=== PATIENT | female | born 1975 | race Caucasian/White ===

== ENCOUNTER 2019-06-12 11:35 | Emergency (ER) | payer OTHER ==
[~2019-06-12] VITALS: Ht 167.6 cm; Wt 77.1 kg
[~2019-06-12 11:35] MED LIST: ADULT ONE DAI200 MCG PO; ALIGN4 MG PO; ANASPAZ0.125 MG SUBLING; APAP500 PO; CLARITIN10 M2 PO; CVS DAILY GUM200 MCG PO; DEXILANT60 MG PO; FIBER GUMMIES2.5 GM PO; FOLGARD TABLET1 EAC1 PO; NORCO 5-325 TA1 EACH PO; PROBIOTIC1 EAC2 PO; PROVIGIL 100 M100 M1 PO; PROVIGIL 200 M200 MG PO; TRAMADOL 50 MG50 MG PO; VITAMIN D-32000 UNIT PO
[2019-06-12 11:57] LABS: URINE BLOOD NEGATIVE (Negative); URINE CLARITY SL CLOUDY; URINE COLOR DARK YELLOW; URINE GLUCOSE-RANDOM NEGATIVE (Negative); URINE KETONES 1+ (Negative); URINE LEUKOCYTES-REFLEX NEGATIVE (Negative); URINE NITRITE-REFLEX NEGATIVE (Negative); URINE PROTEIN 2+ (Negative)
[2019-06-12] MEDS ORDERED: ALPRAZOLAM XR3 MG PO (11:57)
[2019-06-12] MEDS ORDERED: DEXILANT60 MG PO (11:57)
[2019-06-12 11:58] LABS: URINE BILIRUBIN 1+ (Negative)
[2019-06-12] MEDS ORDERED: TAFINLAR50 MG PO (11:58)
[2019-06-12] MEDS ORDERED: MEKINIST2 MG PO (11:59)
[2019-06-12] MEDS ORDERED: TAFINLAR75 MG PO (11:59)
[2019-06-12 12:00] LABS: ICTOTEST (BILI CONFIRMATORY) Positive (Negative)
[2019-06-12] MEDS ORDERED: VITAMIN E400 UNI4 PO (12:00)
[2019-06-12] MEDS ORDERED: ZOFRAN ODT4 MG PO (12:00)
[2019-06-12] MEDS ORDERED: VITAMIN B-1100 M2 PO (12:00)
[2019-06-12] MEDS ORDERED: GLUCOSAMINE-CH1 EACH PO (12:01)
[2019-06-12] MEDS ORDERED: CALCIUM500 MG PO (12:01)
[2019-06-12] MEDS ORDERED: VITAMIN C100 MG PO (12:02)
[2019-06-12] MEDS ORDERED: CHILDREN'S ZYRT10 M1 PO (12:02)
[2019-06-12 12:06] LABS: SQUAMOUS 4-10 Moderate /LPF (0-3); URINE RBC None Seen /HPF (0-2); URINE WBC-REFLEX None Seen /HPF (0-5)
[2019-06-12 12:08] LABS: BACTERIA-REFLEX 1-9 Few /HPF (None Seen); CRYSTALS None Seen /LPF (None Seen); HYALINE CASTS 0-3 Few /LPF (None Seen); MUCUS >6 Heavy strn/LPF (None Seen)
[2019-06-12 12:25] LABS: ABSOLUTE LYMPHOCYTES 0.4 thou/uL (0.8-5.3); ABSOLUTE MONOCYTES 0.4 thou/uL (0.0-1.2); ABSOLUTE NEUTROPHILS 1.7 thou/uL (1.6-8.1); BASOPHILS 0.4 %; HEMATOCRIT 31.4 % (37.0-47.0); HEMOGLOBIN 10.9 gm/dL (12.0-15.0); LYMPHOCYTES 17.3 %; MCH 31.5 pg (26.0-34.0); MCHC 34.9 g/dL (28.0-37.0); MCV 90.2 fL (80.0-100.0); MONOCYTES 13.9 %; MPV 7.5 fl. (7.2-11.1); NUCLEATED RBCS 0 /100WBC; PLATELET COUNT* 104 thou/uL (150-400); POLYS 68.4 %; RBC 3.48 mil/uL (4.20-5.00); RDW-CV 12.4 % (10.5-14.5); WBC 2.5 thou/uL (4.0-11.0)
[2019-06-12 12:27] LABS: CALCIUM 7.9 mg/dL (8.5-10.1); POTASSIUM 3.5 mmol/L (3.5-5.1)
[2019-06-12 12:30] LABS: APTT 29.2 Seconds (25.0-31.3); INR 1.2
[2019-06-12 12:32] LABS: TOTAL BILIRUBIN 0.6 mg/dL (<0.1-1.0); TOTAL PROTEIN 6.1 g/dL (6.4-8.2)
[2019-06-12 12:36] LABS: INFLUENZA A ANTIGEN Negative (Negative); INFLUENZA B ANTIGEN Negative (Negative)
[2019-06-12 14:05] VITALS: BP 156/75
--- NOTE | 2019-06-13 12:30 | EKG ---
[place] [address] ELECTROCARDIOGRAM REPORT Name: MICHAEL CASILLAS Room: [facility]#: [id number] Admission: 06/12/19 Attend Phys: Discharge: 06/12/19 Date of : 71 Report #: [id number] THIS REPORT FOR: //name// [facility] ED Test Date: 2019-06-12 Test Time: 12:19:05 Pat Name: MICHAEL CASILLAS Department: Room: Gender: F Manager Heavy Duty: ROSA : 1975 Requested By: Gera Roberson Order Number: [id number] MD: Pb Carolina Measurements Intervals [place] Rate: 99 P: 36 TN: 176 QRS: 12 QRSD: 98 T: 28 QT: 323 QTc: 415 Interpretive Statements Sinus rhythm RSR' in V1 or V2, right VCD Baseline wander in lead(s) V4,V5,V6 Compared to ECG 01/24/2013 20:22:17 RSR' in V1 or V2 persists Electronically Signed On 06-13-2019 12:30:21 MICROBIOLOGY DIRECTOR by Pb Carolina [email or web address] <ELECTRONICALLY SIGNED> By: Pb Carolina MD, [facility] 06/13/19 1230 1219 1219 Pb Carolina MD, [facility] /EPI
== END 2019-06-12 14:05 | disposition home or self-care (01) ==
LOC: M.ERS 11:35
PROVIDERS: Physician Assistant
DX: C50.911 Malignant neoplasm of unspecified site of right female breast (principal); R50.9 Fever, unspecified; D72.819 Decreased white blood cell count, unspecified; K21.9 Gastro-esophageal reflux disease without esophagitis

== ENCOUNTER 2019-07-15 09:58 | Inpatient (IN) | payer OTHER ==
[~2019-07-15] VITALS: Ht 167.6 cm; Wt 77.1 kg
[2019-07-15] VITALS (10 sets, daily range): BP systolic 81–99; BP diastolic 51–63
--- NOTE | ~2019-07-15 | CON ---
[address] [address] CONSULTATION Name: MICHAEL CASILLAS Room: [address] IN M.R.#: [id number] Admission: 07/15/19 Attend Phys: Jag Gutierrez, Discharge: Date of : 71 Report #: [id number] THIS REPORT FOR: //name// cc: Carlos Hobbs Gregg R. DO ~ THIS REPORT FOR: //name// CC: Carlos Lind DICTATED BY: Brigid Powell [facility] DATE OF SERVICE: 07/17/2019 PRIMARY CARE PHYSICIAN: Carlos Hobbs DO Please note at the time of this dictation, the patient was seen and physically examined by myself. REASON FOR CONSULTATION: Transaminitis. HISTORY OF PRESENT ILLNESS: This 44-year-old female presented to the Emergency Room with altered mental status. She had been taking oral chemo, Mekinist and Tafinlar, which she takes daily. She became very weak overnight nausea, vomiting and ran a fever. She was unable to walk and was brought in for dehydration. The patient denies currently she is having no more nausea or vomiting. Her bowels have not moved. She does not usually have issues with her bowels and she has never seen a doula before. ALLERGIES: No known drug allergies. MEDICATIONS FROM HOME: Multivitamin, Provigil, vitamin D, Children's Zyrtec, calcium, Zofran, Tafinlar, Mekinist, vitamin C, glucosamine, B1, vitamin E, alprazolam and Dexilant. PAST MEDICAL HISTORY: GERD, hiatal hernia, history of Onofre's esophagus, breast cancer in 2014 and then metastatic melanoma to the left forearm. PAST SURGICAL HISTORY: Cholecystectomy, bilateral carpal tunnel. FAMILY HISTORY: Noncontributory. SOCIAL HISTORY: Occasional alcohol. Denies any tobacco or illegal drug use. REVIEW OF SYSTEMS: Twelve-point review of systems is essentially negative except what is mentioned in the HPI. PHYSICAL EXAMINATION: VITAL SIGNS: Temperature 36.7, pulse 61, respirations 17, blood pressure 109/70. HEART: Regular rate and rhythm. LUNGS: Diminished, but clear. ABDOMEN: Soft, positive bowel sounds in all 4 quadrants with no masses or tenderness noted. LABORATORY DATA: Hemoglobin is 9.2, white count 5.1, platelets 129. GFR is 24. Total bilirubin on admission was 7.9, she is down to 2, alkaline phosphatase was 431, she is down to 381, ALT was 87, down to 68 and AST was 203, down to 146. Her CT has been negative. MRI has been negative. IMPRESSION: 1. Transaminitis, trending down. 2. History of gastroesophageal reflux disease. 3. History of Onofre's esophagus. 4. Nausea and vomiting has resolved. 5. Acute kidney injury. 6. Dehydration. 7. Breast cancer. 8. Metastatic melanoma. PLAN: 1. Continue her PPI. 2. We will monitor LFTs since they are trending down and we will follow. Thank you for allowing us to participate in this patient's care. Please do not hesitate to call with any questions in regard to this consult. By: [id number] Olivares MD /nt
[~2019-07-15 09:58] MED LIST changes: +ALPRAZOLAM XR3 MG PO; +CALCIUM500 MG PO; +CHILDREN'S ZYRT10 M1 PO; +GLUCOSAMINE-CH1 EACH PO; +MEKINIST2 MG PO; +TAFINLAR50 MG PO; +TAFINLAR75 MG PO; +VITAMIN B-1100 M2 PO; +VITAMIN C100 MG PO; +VITAMIN E400 UNI4 PO; +ZOFRAN ODT4 MG PO
[2019-07-15 10:58] LABS: ABSOLUTE LYMPHOCYTES 0.7 thou/uL (0.8-5.3); ABSOLUTE MONOCYTES 0.2 thou/uL (0.0-1.2); ABSOLUTE NEUTROPHILS 5.3 thou/uL (1.6-8.1); BASOPHILS 0.4 %; EOSINOPHILS 0.1 %; HEMATOCRIT 33.9 % (37.0-47.0); HEMOGLOBIN 11.6 gm/dL (12.0-15.0); LYMPHOCYTES 11.8 %; MCH 30.5 pg (26.0-34.0); MCHC 34.3 g/dL (28.0-37.0); MCV 88.7 fL (80.0-100.0); MPV 9.3 fl. (7.2-11.1); NUCLEATED RBCS 0 /100WBC; PLATELET COUNT* 157 thou/uL (150-400); POLYS 84.7 %; RBC 3.82 mil/uL (4.20-5.00); RDW-CV 14.3 % (10.5-14.5); WBC 6.3 thou/uL (4.0-11.0)
[2019-07-15 11:07] LABS: APTT 27.5 Seconds (25.0-31.3); INR 1.3; PROTIME 13.1 Seconds (9.20-11.50)
[2019-07-15 11:09] LABS: CALCIUM 7.9 mg/dL (8.5-10.1); CREATININE 5.9 mg/dL (0.6-1.3); POTASSIUM 3.8 mmol/L (3.5-5.1)
[2019-07-15 11:24] LABS: ALBUMIN 2.7 g/dL (3.4-5.0); CK-MB MASS 0.7 ng/mL (<0.5-3.6); TOTAL BILIRUBIN 7.9 mg/dL (<0.1-1.0); TOTAL PROTEIN 6.6 g/dL (6.4-8.2)
[2019-07-15 12:13] LABS: BE -7.8 mmol/L (-2 to +3); PCO2 31.8 mmHg (35.0-45.0); PO2 100.5 mmHg (75.0-100.0); pH 7.344 (7.340-7.450)
[2019-07-15 13:49] LABS: URINE BILIRUBIN NEGATIVE (Negative); URINE BLOOD 1+ (Negative); URINE CLARITY CLEAR; URINE COLOR YELLOW; URINE GLUCOSE-RANDOM NEGATIVE (Negative); URINE KETONES NEGATIVE (Negative); URINE LEUKOCYTES-REFLEX NEGATIVE (Negative); URINE NITRITE-REFLEX NEGATIVE (Negative); URINE PROTEIN 1+ (Negative); URINE UROBILINOGEN 0.2 E.U./dl (0.2-1.0)
[2019-07-15 13:56] LABS: SQUAMOUS 0-3 Few /LPF (0-3); URINE RBC 3-10 Few /HPF (0-2); URINE WBC-REFLEX 0-5 Rare /HPF (0-5)
[2019-07-15 13:57] LABS: BACTERIA-REFLEX 1-9 Few /HPF (None Seen); CASTS None Seen /LPF (None Seen); CRYSTALS None Seen /LPF (None Seen); MUCUS None Seen strn/LPF (None Seen)
[2019-07-15 14:21] LABS: PHOSPHORUS* 8.2 mg/dL (2.5-4.9)
[2019-07-16] VITALS (24 sets, daily range): BP systolic 68–115; BP diastolic 31–83
[2019-07-16 05:20] LABS: HEMATOCRIT 28.1 % (37.0-47.0); HEMOGLOBIN 9.9 gm/dL (12.0-15.0); MCHC 35.3 g/dL (28.0-37.0); MCV 87.8 fL (80.0-100.0); MPV 8.8 fl. (7.2-11.1); RBC 3.2 mil/uL (4.20-5.00); RDW-CV 14.8 % (10.5-14.5); WBC 7.2 thou/uL (4.0-11.0)
[2019-07-16 05:57] LABS: ALBUMIN 2.1 g/dL (3.4-5.0); CALCIUM 7.5 mg/dL (8.5-10.1); MAGNESIUM 1.8 mg/dL (1.8-2.4); POTASSIUM 3.8 mmol/L (3.5-5.1); TOTAL BILIRUBIN 4.7 mg/dL (<0.1-1.0); TOTAL PROTEIN 5.3 g/dL (6.4-8.2)
[2019-07-16 06:00] LABS: CREATININE 3.8 mg/dL (0.6-1.3)
--- NOTE | 2019-07-16 21:46 | CON ---
[address] [address] CONSULTATION Name: MICHAEL RM Room: [address] IN M.R.#: [id number] Admission: 07/15/19 Attend Phys: Jag Gutierrez, Discharge: Date of : 71 Report #: [id number] THIS REPORT FOR: //name// cc: Carlos Hobbs Gregg R. DO ~ THIS REPORT FOR: //name// CC: Carlos Gutierrez DATE OF SERVICE: 07/15/2019 CONSULTATION: Infectious Diseases. HISTORY OF PRESENT ILLNESS: Ms Rm is a 44-year-old white female who is admitted to [facility] on 07/15 with overwhelming weakness, depressed mental status, nausea, vomiting and fever. The patient is currently undergoing chemotherapy for metastatic melanoma with 2 drugs which sound like they are monoclonal antibody type medications. They are given orally. In this setting, the patient became overwhelmingly weak overnight and was brought to the hospital. Infectious Disease consultation was requested because of possible sepsis. The patient has a past history of melanoma in 2017 and 2018. In 2019, she had metastatic melanoma and started chemotherapy for metastatic disease. She currently is on chemo. She has had extensive resections. The patient also has a past history of breast cancer, but I believe this is not active. Other diagnoses include hiatal hernia with reflux. FAMILY HISTORY: Noncontributory. SOCIAL HISTORY: The patient is . She was brought in by her . No history of tobacco, alcohol, nor drugs. REVIEW OF SYSTEMS: Unavailable because of depressed mental status as noted below. I was unable to obtain any specific complaints. PHYSICAL EXAMINATION: GENERAL: The patient appeared pale, ill, obtunded, but comfortable, not in any distress. VITAL SIGNS: Showed no fever. Blood pressure was 82/51. NEUROLOGIC: The patient would open her eyes. When asked questions, she would try to answer them that were sometimes understandable words, but generally very little content. It was hard for her to identify that she was in the hospital, although she denied when asked was she at home or in a religion. She would not respond to any questions regarding pain or any other discomfort. SKIN: Sallow but without any rash, lesion or exanthem. There were a number of surgical scars on her right forearm and hand consistent with resection of melanomas and rotation flap repair. The most recent scar looked to be less than 4 months old, but the flap scars were well healed. The hand was not swollen and had normal range of motion. I cannot tell if there is any numbness. HEENT: Showed the patient would open her eyes and gaze. Pupils were conjugate and equal. Oral cavity was normal. There was no lymphadenopathy. HEART: Sounds S1, S2. LUNGS: Clear. ABDOMEN: Belly was thin, soft, not tender without any mass nor organomegaly. EXTREMITIES: The other 3 extremities were grossly unremarkable. LABORATORY STUDIES: White count is 6.3, hemoglobin 11.6, platelets 157,000. Electrolytes were normal. BUN 82, creatinine 5.9, glucose 193. The liver function tests are elevated with SGOT 203, SGPT 87, alkaline phosphatase 431. Lactate was normal at 1.8. Troponin was normal. Chest x-ray was negative. Urinalysis was negative. Blood cultures and urine cultures are pending. ASSESSMENT AND PLAN: In summary, we have a patient who wakes up with marked weakness and abnormal mental status. She has a history of nausea, vomiting and fever. Workup shows evidence of significant renal dysfunction with elevated liver function tests. I suspect the patient may be severely dehydrated and got into renal failure with a toxic metabolic encephalopathy. There is really very little to suggest a fever, question of infection, although certainly sepsis would be one cause for fever, weakness, and hypotension. It may be worthwhile to have an oncologist to see if there may be toxic effects of some of her chemotherapy regimen. Infection-zavaleta Zosyn should be adequate coverage for the expected causes of sepsis in this setting. Although mental status is abnormal, this does not suggest to be a meningitis. I am hopeful that with hydration and that the renal function will improve, the laboratory abnormalities will improve and her mental status will return to baseline. I would suggest we measure random cortisol and a procalcitonin to look for hypotension due to hypercortisolism. Procalcitonin can be sensitive measure for infection versus other causes of her condition. For now, we will continue Zosyn and supportive therapy. We want to do followup CBC, electrolytes, liver function tests and chest x-ray. We will await results of cultures and response to fluids and therapy. <ELECTRONICALLY SIGNED> By: Pb Mota MD 07/16/19 2146 0818 0843Pb Mota MD /nt
[2019-07-17] VITALS (36 sets, daily range): BP systolic 76–116; BP diastolic 44–73
[2019-07-17 04:21] LABS: HEMATOCRIT 26.7 % (37.0-47.0); HEMOGLOBIN 9.2 gm/dL (12.0-15.0); MCH 30.9 pg (26.0-34.0); MCHC 34.5 g/dL (28.0-37.0); MCV 89.5 fL (80.0-100.0); MPV 9.2 fl. (7.2-11.1); RBC 2.99 mil/uL (4.20-5.00); RDW-CV 14.9 % (10.5-14.5); WBC 5.1 thou/uL (4.0-11.0)
[2019-07-17 04:37] LABS: CALCIUM 7.8 mg/dL (8.5-10.1); MAGNESIUM 1.6 mg/dL (1.8-2.4); POTASSIUM 3.9 mmol/L (3.5-5.1); TOTAL PROTEIN 5.1 g/dL (6.4-8.2)
[2019-07-17 04:44] LABS: CREATININE 2.2 mg/dL (0.6-1.3)
[2019-07-17 06:00] LABS: CALCIUM 7.9 mg/dL (8.5-10.1)
[2019-07-17 06:05] LABS: CREATININE 2.2 mg/dL (0.6-1.3)
[2019-07-17 18:17] LABS: INR 1.3
[2019-07-18] VITALS (15 sets, daily range): BP systolic 80–99; BP diastolic 35–61
[2019-07-18 04:57] LABS: HEMATOCRIT 26.8 % (37.0-47.0); HEMOGLOBIN 9.3 gm/dL (12.0-15.0); MCH 30.7 pg (26.0-34.0); MCHC 34.7 g/dL (28.0-37.0); MCV 88.3 fL (80.0-100.0); MPV 9.4 fl. (7.2-11.1); RBC 3.03 mil/uL (4.20-5.00); RDW-CV 14.7 % (10.5-14.5); WBC 5.8 thou/uL (4.0-11.0)
[2019-07-18 05:09] LABS: ALBUMIN 2.1 g/dL (3.4-5.0); CALCIUM 8.1 mg/dL (8.5-10.1); CREATININE 1.4 mg/dL (0.6-1.3); MAGNESIUM 1.4 mg/dL (1.8-2.4); POTASSIUM 3.6 mmol/L (3.5-5.1); TOTAL BILIRUBIN 1.5 mg/dL (<0.1-1.0); TOTAL PROTEIN 5.1 g/dL (6.4-8.2)
--- NOTE | 2019-07-18 17:47 | 2DMMODE ---
[place] [address] 2 D/M-MODE ECHOCARDIOGRAM Name: MICHAEL CASILLAS Room: [address] IN [facility]#: [id number] Admission: 07/15/19 Attend Phys: Jag Betancourt Discharge: Date of : 71 Date of Service: 07/18/19 1747 Report #: [id number] THIS REPORT FOR: cc: Carlos Hobbs Gregg R. DO Biggs, F. Douglas MD [facility] ~ APPROVED REPORT Study performed: 07/18/2019 14:08:22 EXAM: Comprehensive 2D, Doppler, and color-flow Echocardiogram Patient Location: In-Patient Room #: 005 Status: routine BSA: 1.90 HR: 74 bpm BP: 97/60 mmHg Rhythm: NSR Other Information Study Quality: Good Indications Hypotension 2D Dimensions IVSd: 9.17 (7-11mm) LVOT Diam: 20.33 (18-24mm) LVDd: 50.09 mm PWd: 8.67 (7-11mm) Ascending Ao: 29.44 (22-36mm) LVDs: 36.12 (25-40mm) Aortic Root: 28.86 mm Volumes Left Atrial Volume (Systole) LA ESV Index: 27.40 mL/m2 Aortic Valve AoV Peak Armando.: 1.30 m/s AO Peak Gr.: 6.71 mmHg LVOT Max P.00 mmHg AO Mean Gr.: 3.78 mmHg LVOT Mean P.56 mmHg LVOT Max V: 1.12 m/s AO V2 VTI: 26.08 cm LVOT Mean V: 0.73 m/s KELVIN (VTI): 2.82 cm2 LVOT V1 VTI: 22.66 [place] [address] 2 D/M-MODE ECHOCARDIOGRAM Name: MICHAEL CASILLAS Room: [address] IN [facility].#: [id number] Admission: 07/15/19 Attend Phys: Jag Betancourt Discharge: Date of : 71 Date of Service: 07/18/19 1747 Report #: [id number] Mitral Valve E/A Ratio: 1.50 MV Decel. Time: 250.70 ms MV E Max Armando.: 0.66 m/s MV PHT: 72.70 ms MVA (PHT): 3.03 cm2 TDI E/Lateral E': 3.14 E/Medial E': 4.71 Medial E' Armando.: 0.14 m/s Lateral E' Armando.: 0.21 m/s Pulmonary Valve PV Peak Armando.: 0.98 m/s PV Peak Gr.: 3.82 mmHg Tricuspid Valve RAP Estimate: 5.00 mmHg TR Peak Gr.: 19.15 mmHg RVSP: 24.00 mmHg PA Pressure: 24.00 mmHg Left Ventricle The left ventricle is normal size. There is normal LV segmental wall motion. There is normal left ventricular wall thickness. Left ventricular systolic function is normal. The left ventricular ejection fraction is within the normal range. LVEF is 60-65%. The left ventricular diastolic function is normal. Right Ventricle The right ventricle is normal size. The right ventricular systolic function is normal. Atria The left atrium size is normal. The right atrium size is normal. Aortic Valve The aortic valve is normal in structure. No aortic regurgitation is present. There is no aortic valvular stenosis. Mitral Valve The mitral valve is normal in structure. Trace mitral regurgitation. No evidence of mitral valve stenosis. Tricuspid Valve The tricuspid valve is normal in structure. Mild tricuspid regurgitation[place] [address] 2 D/M-MODE ECHOCARDIOGRAM Name: MICHAEL CASILLAS Room: [address]#: [id number] Admission: 07/15/19 Attend Phys: Jag Betancourt Discharge: Date of : 71 Date of Service: 07/18/19 1747 Report #: [id number] Pulmonic Valve The pulmonary valve is normal in structure. There is no pulmonic valvular regurgitation. Great Vessels The aortic root is normal in size. IVC is normal in size and collapses >50% with inspiration. Pericardium There is no pericardial effusion. <Conclusion> LVEF is 60-65%. Left ventricular systolic function is normal. The left ventricular ejection fraction is within the normal range. The left ventricle is normal size. There is normal left ventricular wall thickness. There is normal LV segmental wall motion. The left ventricular diastolic function is normal. The right ventricle is normal size. The right ventricular systolic function is normal. Trace mitral regurgitation. Mild tricuspid regurgitation. No pulmonary hypertension. There is no pericardial effusion. <ELECTRONICALLY SIGNED> By: Gentry Bradshaw MD, FACC 07/18/191746 46 46 Gentry Bradshaw MD, FACC /INF
[2019-07-18 18:06] LABS: HEPATITIS B SURFACE AG Negative (Negative)
[2019-07-19 00:27] VITALS: BP 94/54
[2019-07-19 04:24] VITALS: BP 96/61
[2019-07-19 04:53] LABS: HEMATOCRIT 25.2 % (37.0-47.0); HEMOGLOBIN 8.7 gm/dL (12.0-15.0); MCH 30.6 pg (26.0-34.0); MCHC 34.5 g/dL (28.0-37.0); MCV 88.8 fL (80.0-100.0); MPV 10.1 fl. (7.2-11.1); RBC 2.83 mil/uL (4.20-5.00); RDW-CV 14.5 % (10.5-14.5); WBC 6.2 thou/uL (4.0-11.0)
[2019-07-19 05:12] LABS: ALBUMIN 2.1 g/dL (3.4-5.0); CALCIUM 7.5 mg/dL (8.5-10.1); CREATININE 1.2 mg/dL (0.6-1.3); POTASSIUM 3.6 mmol/L (3.5-5.1); TOTAL BILIRUBIN 1.4 mg/dL (<0.1-1.0)
[2019-07-19 08:00] VITALS: BP 100/46
--- NOTE | 2019-07-19 08:36 | CON ---
[address] [address] CONSULTATION Name: MICHAEL CASILLAS Room: [address] IN M.R.#: [id number] Admission: 07/15/19 Attend Phys: Jag Gutierrez, Discharge: Date of : 71 Report #: [id number] THIS REPORT FOR: //name// cc: Carlos Hobbs Gregg R. DO ~ THIS REPORT FOR: //name// CC: Carlos Gutierrez DATE OF SERVICE: 07/17/2019 NEPHROLOGY CONSULTATION REFERRING PHYSICIAN: Jag Gutierrez MD REASON FOR NEPHROLOGY CONSULTATION: Acute kidney injury. REASON FOR ADMISSION: Nausea and vomiting. HISTORY OF PRESENT ILLNESS: This is a 44-year-old female who has a past medical history of metastatic melanoma, recently started on chemotherapy with Mekinist and Tafinlar, came in with nausea, vomiting and extreme weakness and she was also confused. Her creatinine was 5.9 when she came in, she was given IV hydration and creatinine is coming down to 2.2 today. She is also more awake and trying to take in more liquids. Her creatinine was 1.0 in 06/2019. She also presented with low blood pressure. Blood pressure still is running towards the lower side 80s-90s systolic. Good urine output of 2650 in last 24 hours. She also has deranged LRBs, which are improving and Oncology is also involved in her care. REVIEW OF SYSTEMS: As mentioned above, otherwise 10-point review of systems are negative. ALLERGIES: No known drug allergies. PAST MEDICAL HISTORY AND SURGICAL HISTORY: Includes GERD, hiatal hernia, Onofre's esophagus, cholecystectomy in 2013, bilateral carpal tunnel surgery, breast cancer surgery, lumpectomy and radiation chemotherapy, metastatic melanoma. She had involvement of the left wrist in 2017 and 2018, in the left arm in 2019, isolated limb perfusion immunotherapy in 2019. Cutaneous metastatic melanoma, left forearm. SOCIAL HISTORY: She lives at home with her children and her . She does not smoke or drink alcohol or use illicit drugs. FAMILY HISTORY: Noncontributory in this situation. HOME MEDICATIONS: Include Dexilant, alprazolam, Mekinist, Tafinlar, vitamin E, thiamine mononitrate, glucosamine, calcium carbonate, ascorbic acid, ondansetron, cetirizine, cholecalciferol, modafinil, multivitamin, folic acid. PHYSICAL EXAMINATION: VITAL SIGNS: Blood pressure is 109/70, temperature 36.7, pulse rate 61, respiratory rate is 17, pulse ox 99% and she is not on oxygen. GENERAL: She is awake, alert and oriented x 3. HEAD AND EYES: Atraumatic, normocephalic. EARS, NOSE, AND THROAT: Normal ears and nose. Mucous membranes are a little bit dry. NECK: No JVD. CHEST: Bilaterally clear to auscultation anteriorly. No crackles or wheezing. CARDIOVASCULAR: S1, S2 normal. No murmurs. ABDOMEN: Soft, nondistended, nontender. Bowel sounds are present. EXTREMITIES: There is no lower extremity edema. NEUROLOGICAL FUNCTION: Gross neurological function is intact. PSYCHIATRIC: Mood zavaleta, she seems to be normal. LABORATORY DATA: Sodium was 149 yesterday and 145 today, creatinine is 2.2, potassium is 4.0. Platelet count is 129, hemoglobin is 9.2. Other labs were reviewed. IMAGING: Adwoa ultrasound, abdominal ultrasound, head CT and MRI, chest x-ray were reviewed. ASSESSMENT: 1. Acute kidney injury in the setting of intravascular volume depletion, hypotension, nausea and vomiting in the setting of chemotherapy use, creatinine 1.0 at baseline and 5.9 on admission, improving down to 2.2. UA showed 1+ protein, 3-10 rbc's per high power field, can be repeated later on as outpatient. Renal ultrasound was unremarkable. 2. History of metastatic melanoma. Oncology is following, on chemotherapy which is currently on hold. 3. Transaminitis, which is also improving. 4. Altered mental status, which also seems to be improving. 5. Hypotension, also improving with IV fluids. PLAN: 1. Continue IV fluids, but decrease the rate to 75 mL an hour and once her oral intake is sufficient, IV fluids can be stopped. 2. Creatinine continues to improve. Continue to trend labs. 3. Try to keep a MAP around 65-70. Thank you for this consultation and since creatinine is improving, we do not have anything else to add at this point in time and please call if you have any questions. We will sign off now. Discussed with the patient and family and nurse. <ELECTRONICALLY SIGNED> By: Shanika Kirk MD 07/19/19 0836 0937 1133Alovely Kirk MD /nt
[2019-07-19 11:36] VITALS: BP 96/61
[2019-07-19 16:00] VITALS: BP 97/58
[2019-07-19 20:00] VITALS: BP 100/63
[2019-07-20] VITALS (7 sets, daily range): BP systolic 86–106; BP diastolic 41–68
[2019-07-20 05:53] LABS: HEMOGLOBIN 9.3 gm/dL (12.0-15.0); MCH 30.6 pg (26.0-34.0); MCHC 34.5 g/dL (28.0-37.0); MCV 88.5 fL (80.0-100.0); MPV 9.7 fl. (7.2-11.1); RBC 3.05 mil/uL (4.20-5.00); RDW-CV 14.7 % (10.5-14.5); WBC 6.8 thou/uL (4.0-11.0)
[2019-07-20 06:07] LABS: MAGNESIUM 1.7 mg/dL (1.8-2.4); POTASSIUM 3.4 mmol/L (3.5-5.1)
[2019-07-20] MEDS ORDERED: AUGMENTIN 875-1 EACH PO (17:58)
[2019-07-20] MEDS ORDERED: MAGOX 400400 MG PO (17:59)
[2019-07-21] VITALS: BP 97/63
[2019-07-21 03:59] VITALS: BP 98/62
[2019-07-21 04:52] LABS: HEMATOCRIT 23.6 % (37.0-47.0); HEMOGLOBIN 8.2 gm/dL (12.0-15.0); MCH 30.8 pg (26.0-34.0); MCHC 34.7 g/dL (28.0-37.0); MCV 88.7 fL (80.0-100.0); MPV 9.4 fl. (7.2-11.1); RBC 2.66 mil/uL (4.20-5.00); RDW-CV 14.3 % (10.5-14.5); WBC 4.9 thou/uL (4.0-11.0)
[2019-07-21 05:23] LABS: CALCIUM 8.3 mg/dL (8.5-10.1); CREATININE 0.9 mg/dL (0.6-1.3); POTASSIUM 3.7 mmol/L (3.5-5.1)
[2019-07-21 07:10] LABS: URINE BILIRUBIN NEGATIVE (Negative); URINE BLOOD NEGATIVE (Negative); URINE CLARITY CLEAR; URINE COLOR YELLOW; URINE GLUCOSE-RANDOM NEGATIVE (Negative); URINE KETONES NEGATIVE (Negative); URINE LEUKOCYTES-REFLEX NEGATIVE (Negative); URINE NITRITE-REFLEX NEGATIVE (Negative); URINE PROTEIN NEGATIVE (Negative); URINE UROBILINOGEN 0.2 E.U./dl (0.2-1.0)
[2019-07-21 07:47] VITALS: BP 91/44
[2019-07-21 11:14] VITALS: BP 90/53
[2019-07-21 15:59] VITALS: BP 101/68
[2019-07-21 16:10] LABS: INFLUENZA A ANTIGEN Negative (Negative); INFLUENZA B ANTIGEN Negative (Negative)
[2019-07-21 19:30] VITALS: BP 108/70
[2019-07-22 00:51] VITALS: BP 95/56
[2019-07-22 04:14] VITALS: BP 103/66
[2019-07-22 06:09] LABS: ABSOLUTE LYMPHOCYTES 0.8 thou/uL (0.8-5.3); ABSOLUTE MONOCYTES 0.7 thou/uL (0.0-1.2); ABSOLUTE NEUTROPHILS 2.2 thou/uL (1.6-8.1); BASOPHILS 0.5 %; EOSINOPHILS 0.6 %; HEMATOCRIT 25.3 % (37.0-47.0); HEMOGLOBIN 8.5 gm/dL (12.0-15.0); LYMPHOCYTES 21.8 %; MCH 29.8 pg (26.0-34.0); MCHC 33.6 g/dL (28.0-37.0); MCV 88.7 fL (80.0-100.0); MONOCYTES 18.4 %; MPV 9.3 fl. (7.2-11.1); NUCLEATED RBCS 0 /100WBC; PLATELET COUNT* 262 thou/uL (150-400); POLYS 58.7 %; RBC 2.85 mil/uL (4.20-5.00); RDW-CV 14.3 % (10.5-14.5); WBC 3.8 thou/uL (4.0-11.0)
[2019-07-22 06:21] LABS: ALBUMIN 2.2 g/dL (3.4-5.0); CALCIUM 8.2 mg/dL (8.5-10.1); CREATININE 0.8 mg/dL (0.6-1.3); POTASSIUM 3.7 mmol/L (3.5-5.1); TOTAL PROTEIN 5.6 g/dL (6.4-8.2)
[2019-07-22 08:00] VITALS: BP 105/66
[2019-07-22 10:59] VITALS: BP 119/71
[2019-07-22 11:03] VITALS: BP 98/56
[2019-07-22 11:05] VITALS: BP 98/56
--- NOTE | 2019-07-24 13:53 | EKG ---
[place] [address] ELECTROCARDIOGRAM REPORT Name: MICHAEL CASILLAS Room: [address]#: [id number] Admission: 07/15/19 Attend Phys: Jag Betancourt Discharge: 07/22/19 Date of : 71 Date of Service: 07/15/19 1015 Report #: [id number] THIS REPORT FOR: cc: Carlos Hobbs Gregg R. DO Blick, David R. MD [facility] THIS REPORT FOR: //name// [facility] ED Test Date: 2019-07-15 Test Time: 10:15:07 Pat Name: MICHAEL CASILLAS Department: Room: Gender: F Sales Exec: [facility] : 1975 Requested By: Kevin Godoy Order Number: [id number] MD: Tejas Shukla Measurements Intervals [place] Rate: 65 P: 58 [place]: 176 QRS: 13 QRSD: 112 T: 24 QT: 465 QTc: 484 Interpretive Statements Sinus rhythm Borderline intraventricular conduction delay Compared to ECG 06/12/2019 12:19:05 No significant changes Electronically Signed On 07-15-2019 11:30:02 TRAFFIC WAREHOUSE SUPERVISOR by Tejas Shukla [email or web address] <ELECTRONICALLY SIGNED> By: Tejas Shukla MD, [facility] 07/15/19 1130 1015 1015 Tejas Shukla MD, [facility] /EPI
--- NOTE | 2019-07-24 18:38 | EEG ---
[address] [address] EEG STUDY REPORT Name: MICHAEL CASILLAS Room: [address]#: [id number] Admission: 07/15/19 Attend Phys: Jag Gutierrez, Discharge: 07/22/19 Date of : 71 Report #: [id number] THIS REPORT FOR: //name// CC: Carlos Gutierrez DATE OF SERVICE: 07/16/2019 This patient is confused. EEG was done by placing the electrode by standard 10-20 system of electrode placement. Both referential and sequential montages were used for recording. Background activity in this patient's EEG is about 7-8 Hz and 30 microvolt. It is a poorly formed background activity. It is intermixed with theta range slowing on both sides. The patient went to sleep and that is associated with bilateral slowing and vertex sharp waves. Photic stimulation was unremarkable. Throughout the record, no active epileptiform activity was noticed. IMPRESSION: This patient's EEG is disorganized and poorly formed. That is a nonspecific abnormality which can occur with encephalopathy, effect of psychotropic medication, dementia, etc. Clinical correlation is recommended. <ELECTRONICALLY SIGNED> By: Wade Moffett MD 07/24/19 1838 1411 1419Wade Moffett MD /nt
--- NOTE | 2019-07-24 18:38 | CON ---
[address] [address] CONSULTATION Name: JAGMICHAEL Jennifer Room: [address] IN M.R.#: [id number] Admission: 07/15/19 Attend Phys: Jag Gutierrez, Discharge: 07/22/19 Date of : 71 Report #: [id number] THIS REPORT FOR: //name// cc: Carlos Hobbs Gregg R. DO ~ THIS REPORT FOR: //name// CC: Carlos Gutierrez DATE OF SERVICE: 07/16/2019 HISTORY OF PRESENT ILLNESS: This is a 44-year-old female patient, who is unable to provide any reliable history. I tried to see her last night and she was unable to cooperate. I again saw her this morning and she continued to be confused. I called the patient's and was able to talk to him. He indicated that this patient was okay till last week. She was feeling tired; and since then, she has become very lethargic and very confused. She underwent evaluation and looks like she has severe renal failure with a creatinine of 5.9 yesterday, although it is better today. She is slightly hyponatremic. Her liver function test is also abnormal. She apparently has a stage 4 melanoma, which is in her lung, and follows up with an oncologist at [facility]. REVIEW OF SYSTEMS: A 14-point review of systems was carried out. She is having multiple symptoms. She is in renal failure. She has liver abnormalities. She is being worked up and managed for sepsis. She has a stage 4 melanoma. But this mentation changes are new. She was not eating very well in the last few days. This is the relevant 14-point review of systems. PAST MEDICAL HISTORY: Positive for what describes as stage 4 melanoma. FAMILY HISTORY: Negative for any relevant things. SOCIAL HISTORY: She does not use alcohol on a regular basis. PHYSICAL EXAMINATION: NEUROLOGIC: The patient's examination indicates she is alert, she does not answer much questions for me. She barely talks. When she talks, she does not make any sense. She does not follow simple commands, making it almost impossible to carry out any examinations on her. But it looks like she can move all four extremities. There does not appear to be any meningeal sign. She is not able to cooperate with the rest of the neurological examination, which was attempted. GENERAL: She is a moderately built individual. HEENT: She does not have any dysmorphic features of eyes, ears and face. VITAL SIGNS: Her blood pressure is running low at 84 systolic, respiration is 20, pulse is 74. LABORATORIES: Indicate a white count of 7.2. IMAGING STUDIES: She has not had any imaging study of the brain; according to the , she has not had it for some time. IMPRESSION: This patient has most likely encephalopathy because her kidney function and liver function are abnormal We will suggest checking an ammonia level and looks like GI is already going to follow up this patient. But she is so confused, I will suggest getting some imaging study of the brain and EEG. I ordered that after I talked to the and we will see if we need to do anything different. I do not think there is any sign of BUSINESS APPLICATIONS SPECIALIST infection in this patient clinically; but if MRI shows any doubt, then we will proceed accordingly. Because of kidney function, I will do the MRI without contrast only. Thank you very much for this referral. <ELECTRONICALLY SIGNED> By: Wade Moffett MD 07/24/19 1838 0738 0820Parmarivel Moffett MD /nt
== END 2019-07-22 12:01 | disposition home or self-care (01) | DRG 871 ==
LOC: M.ERS 09:58 → M.TBA-ER 12:44 → M.2W 12:44 → M.ICU 12:44 → M.2W 07-18 17:30
PROVIDERS: Emergency Medicine Emergency Medical Services; Internal Medicine; Internal Medicine Hematology & Oncology; Specialist; ADMIT Family Medicine
DX: A41.9 Sepsis, unspecified organism (principal); E43 Unspecified severe protein-calorie malnutrition; G92 Toxic encephalopathy; E87.0 Hyperosmolality and hypernatremia; N17.9 Acute kidney failure, unspecified; E87.1 Hypo-osmolality and hyponatremia; C79.2 Secondary malignant neoplasm of skin; E87.8 Other disorders of electrolyte and fluid balance, not elsewhere classified; E83.42 Hypomagnesemia; D64.9 Anemia, unspecified; I95.9 Hypotension, unspecified; K76.0 Fatty (change of) liver, not elsewhere classified; E86.0 Dehydration; F32.9 Major depressive disorder, single episode, unspecified; K21.9 Gastro-esophageal reflux disease without esophagitis; K44.9 Diaphragmatic hernia without obstruction or gangrene; K22.70 Barrett's esophagus without dysplasia; T50.995A Adverse effect of other drugs, medicaments and biological substances, initial encounter; Z90.49 Acquired absence of other specified parts of digestive tract; Z79.899 Other long term (current) drug therapy; Z68.27 Body mass index [BMI] 27.0-27.9, adult; Z85.3 Personal history of malignant neoplasm of breast; Z85.820 Personal history of malignant melanoma of skin; Z85.89 Personal history of malignant neoplasm of other organs and systems; Z72.89 Other problems related to lifestyle; Z85.038 Personal history of other malignant neoplasm of large intestine; Z86.010 Personal history of colon polyps; Z92.3 Personal history of irradiation; Z92.21 Personal history of antineoplastic chemotherapy; R16.2 Hepatomegaly with splenomegaly, not elsewhere classified

== ENCOUNTER 2020-01-09 08:53 | Emergency (ER) | payer OTHER ==
[~2020-01-09] VITALS: Ht 167.6 cm; Wt 68.1 kg
[~2020-01-09 08:53] MED LIST changes: +AUGMENTIN 875-1 EACH PO; +MAGOX 400400 MG PO
[2020-01-09] MEDS ORDERED: TRAMADOL 50 MG50 MG PO (09:34)
[2020-01-09] MEDS ORDERED: HYDROXYZINE HCL25 M2 PO (09:35)
[2020-01-09] MEDS ORDERED: DEXAMETHASONE1 MG PO (09:36)
[2020-01-09] MEDS ORDERED: ALPRAZOLAM XR3 MG PO (09:36)
[2020-01-09] MEDS ORDERED: LEVETIRACETAM500 M1 PO (09:38)
[2020-01-09] MEDS ORDERED: PROTONIX 20 MG20 MG PO (09:39)
[2020-01-09] MEDS ORDERED: VALTREX 500 MG500 M1 PO (09:40)
[2020-01-09 09:42] LABS: BE 5.5 mmol/L (-2 to +3); PCO2 40.6 mmHg (35.0-45.0); PO2 88.9 mmHg (75.0-100.0); pH 7.478 (7.340-7.450)
[2020-01-09 09:53] LABS: HEMATOCRIT 36.6 % (37.0-47.0); HEMOGLOBIN 12.4 gm/dL (12.0-15.0); MCH 29.5 pg (26.0-34.0); MCHC 33.9 g/dL (28.0-37.0); MCV 87.1 fL (80.0-100.0); MPV 7.6 fl. (7.2-11.1); NUCLEATED RBCS 0 /100WBC; PLATELET COUNT* 191 thou/uL (150-400); RDW-CV 18.4 % (10.5-14.5)
[2020-01-09 10:06] LABS: CALCIUM 8.9 mg/dL (8.5-10.1); POTASSIUM 3.8 mmol/L (3.5-5.1)
[2020-01-09 10:10] LABS: ALBUMIN 3.8 g/dL (3.4-5.0); MAGNESIUM 1.8 mg/dL (1.8-2.4); TOTAL PROTEIN 6.7 g/dL (6.4-8.2)
[2020-01-09 10:39] LABS: ABSOLUTE LYMPHOCYTES 0.7 thou/uL (0.8-5.3); ABSOLUTE MONOCYTES 0.5 thou/uL (0.0-1.2); ABSOLUTE NEUTROPHILS 10.8 thou/uL (1.6-8.1); METAMYELOCYTES 2 %
[2020-01-09 10:40] LABS: HYPOCHROMASIA 1+; PLATELET ESTIMATE ADEQUATE
[2020-01-09 10:41] LABS: OVALOCYTES Occasional
[2020-01-09 16:47] VITALS: BP 145/81
--- NOTE | 2020-01-09 17:18 | EKG ---
[place] [address] ELECTROCARDIOGRAM REPORT Name: IMCHAEL CASILLAS Room: [facility]#: [id number] Admission: 01/09/20 Attend Phys: Discharge: 01/09/20 Date of : 71 Date of Service: 01/09/209[address] Report #: [id number] THIS REPORT FOR: //name// [facility] ED Test Date: 2020-01-09 Test Time: 09:01:51 Pat Name: MICHAEL CASILLAS Department: Room: Gender: F Central Supply Aide: : 1975 Requested By: Kat Ledesma Order Number: [id number] Reading MD: Maximilian Blanco Measurements Intervals [place] Rate: 72 P: 24 IN: 134 QRS: 23 QRSD: 97 T: -14 QT: 422 QTc: 462 Interpretive Statements Sinus rhythm Borderline T abnormalities, inferior leads Baseline wander in lead(s) II,III,aVF Compared to ECG 07/15/2019 10:15:07 T-wave abnormality now present Electronically Signed On 01-09-2020 17:18:11 CDT by Maximilian Blanco [email or web address] <ELECTRONICALLY SIGNED> By: Maximilian Blanco MD, FAC 01/09/20 1718 0901 0901 Maximilian Blanco MD, [facility] /EPI
== END 2020-01-09 16:50 | disposition designated cancer center or children's hospital (05) ==
LOC: M.ERS 08:53
PROVIDERS: Personal Emergency Response Attendant
DX: C71.9 Malignant neoplasm of brain, unspecified (principal); K21.9 Gastro-esophageal reflux disease without esophagitis; Z88.1 Allergy status to other antibiotic agents; Z79.899 Other long term (current) drug therapy; Z98.890 Other specified postprocedural states; Z90.89 Acquired absence of other organs